=== PATIENT | male | born 1995 | race African-American/Black ===

== ENCOUNTER 2021-03-05 09:14 | Emergency (ER) | payer OTHER, SELFPAY ==
--- NOTE | ~2021-03-05 | XR_ITS ---
EXAMINATION: XR HAND, RIGHT CLINICAL INFORMATION: Pain and swelling 3rd-5th metacarpals. COMPARISON: None TECHNIQUE: PA, lateral, and oblique views of the right hand. FINDINGS: There is no acute fracture, dislocation or bony abnormality involving the right hand of the fingers. MCP, IP and CMC MCP joints are normal. The soft tissues are normal XR/XR hand RT min 3V IMPRESSION: Unremarkable right hand.
[2021-03-05 09:28] VITALS: BP 143/69; PULSE 100; RESP 19; TEMP 36.6; O2SAT 99; BMI 17.3
--- NOTE | 2021-03-05 09:44 | ED_ITS ---
HPI - Extremity Problem General Chief complaint: Extremity Injury, Upper Stated complaint: right hand pain Time Seen by Provider: 03/05/21 09:44 Source: patient Mode of arrival: ambulatory Limitations: no limitations History of Present Illness HPI Narrative: 25 y/o male presenting with right hand pain after he punched a wall last night. He states the wall was brick and he did it because he was angry. He had immediate pain to his 3rd and 4th knuckles, worse with movement and palpation. He has no numbness or tingling. No obvious deformity or significant swelling. He had continued pain this morning so he presents for x- rays to see if it is broken. He is right hand dominant. MD Complaint: extremity pain Pain Consistency: constant Location: right and upper extremity Quality: aching Radiation: none Relieving factors: immobilization and rest Exacerbating factors: range of motion and palpation Associated symptoms: denies other symptoms Related Data Previous Rx's Medication Instructions Recorded ibuprofen 600 mg PO Q8H PRN #20 tab 03/05/21 Allergies Allergy/AdvReac Type Severity Reaction Status Date / Time No Known Allergies Allergy Verified 03/05/21 10:02 Review of Systems Review of Systems: Constitutional: No Fever, No Chills Cardiovascular: No Chest Pain, No SOB Respiratory: No Cough, No Sputum Gastrointestinal: No Nausea, No Vomiting Musculoskeletal: + joint pain, No Myalgias Skin: No Skin Lesions, No rash, +abrasions Neuro: No Weakness, No Numbness Psych: No Anxiety/Panic, No Depression Heme/Lymph: No Bruising PMFSH Past Medical History Attestation statement: The following information was validated with the patient. Social History Social History Advance Directives: Yes Advance Directives Information Provided: No Advance Directives on File: No Physical Exam Vital Signs: Vital Signs: Last Vital Signs Temp 98 F 03/05/21 09:28 Pulse 100 03/05/21 09:28 Resp 19 03/05/21 09:28 BP 143/69 H 03/05/21 09:28 Pulse Ox 99 03/05/21 09:28 Body Mass Index 17.3 Appearance: Alert. Oriented X3. No acute distress. HEENT: normal inspection CVS: Normal heart rate and rhythm. Pulses normal. Respiratory: No respiratory distress. Skin: Skin warm and dry. Normal skin color. Normal skin turgor. No rashes. Extremities: right hand with mild swelling over 3rd and 4th MCP's with scattered superficial abradions to dorsal hand and 4th and 3rd fingers. no deformity. good cap refill and radial pulse. tenderness of 3rd and 4th MCP joints and proximal carpals. pain with hand grasp, he has full ROM of his hand and wrist but with some discomfort. Neuro: Oriented X 3. No motor deficit. No sensory deficit. Course Course Course Narrative: 25 y/o male presenting with traumatic right hand pain s/p punching a wall. XR pending to assess for fracture Reevaluation(s) Reevaluation #1: XR is negative. Placed in SHAHANA wrap for support and compression. Will Rx for NSAID and have him f/u with Ortho if pain persists for re- evaluation. Stable for discharge home. Discharge Plan Discharge Clinical Impression: Contusion of hand Qualifiers: Encounter type: initial encounter Laterality: right Qualified Code(s): S60.221A - Contusion of right hand, initial encounter Patient Disposition: Home, Self-Care Instructions: Contusion in Adults (ED) Additional Instructions: Your hand x-ray showed no fractures. Recommend using the SHAHANA wrap for support, elevating your hand when possible and ice several times per day. Take prescribed Iburpofen as directed. If you have persistent pain in 1 week, follow up with retail product demo specialist for re-evaluation. Prescriptions: New ibuprofen 600 mg tablet 600 mg PO Q8H PRN (Reason: pain) Qty: 20 RF: 0 Referrals: Frederic Baxter MD [Physician] - 1 week (traumatic right hand pain, XR negative)
[2021-03-05] MEDS: Ketorolac Tromethamine 30 MG/ML VIAL IM (10:12)
--- NOTE | 2021-03-05 10:13 | PC.NURSE ---
Imaging obtained, antibiotic ointment, bandaid, and radha wrap applied to hand by Pricilla CARDOZO. PT given IM Toradol for pain. Pt awaiting discharge.
== END 2021-03-05 10:28 | disposition home or self-care (01) ==
PROVIDERS: Emergency Provider Emergency Medicine
DX: S60.221A Contusion of right hand, initial encounter (principal); W22.09XA Striking against other stationary object, initial encounter; Y93.9 Activity, unspecified; Y92.9 Unspecified place or not applicable; Y99.9 Unspecified external cause status
CPT/HCPCS: 73130; 96372; 99284; J1885

== ENCOUNTER 2021-04-13 19:17 | Emergency (ER) | payer OTHER, SELFPAY ==
--- NOTE | ~2021-04-13 | XR_ITS ---
EXAMINATION: XR CHEST CLINICAL INFORMATION: Pneumonia COMPARISON: None TECHNIQUE: Frontal view of the chest was obtained. FINDINGS: No significant abnormality is noted involving the heart, lungs, mediastinum, bony thorax or soft tissues. XR/XR chest 1V IMPRESSION: Unremarkable examination.
[2021-04-13 19:42] VITALS: BP 119/72; PULSE 129; RESP 22; TEMP 38.1; O2SAT 100; BMI 17.3
[2021-04-13 21:03] VITALS: BP 109/76; PULSE 121; RESP 14; TEMP 37.4; O2SAT 100
--- NOTE | 2021-04-13 21:03 | PC.NURSE ---
report taken from benigno payne. client tachycardic, mildly febrile. states chills and cold. states back pain.
[2021-04-13] MEDS: 0.9 % Sodium Chloride 1,000 ML 999 ML IV ×3 (21:10→22:21)
[2021-04-13 21:29] LABS: MANUAL DIFF FLAG NO
[2021-04-13 21:36] LABS: Basophils Percent Auto 0.4 % (0-2); Eosinophils Absolute Auto 0.1 X10*3/uL (0.0-0.4); Eosinophils Percent Auto 0.6 % (0-4); Hematocrit 45.9 % (42-52); Hemoglobin 15.5 g/dl (14.0-18.0); Imm Gran Abs Auto 0.06 X10*3/uL (0.00-0.03); Imm Gran Pct Auto 0.6 % (0.0-0.4); Lymphocytes Absolute Auto 0.3 X10*3/uL (1.2-4.9); Lymphocytes Percent Auto 2.6 % (20-40); Mean Corpuscular HGB Conc 33.8 g/dl (31.0-36.0); Mean Corpuscular Volume 88.8 fL (80-98); Mean Platelet Volume 9.8 fL (9.4-12.4); Monocytes Absolute Auto 1.5 X10*3/uL (0.1-1.2); Monocytes Percent Auto 14.9 % (2-11); Neutrophils Absolute Auto 7.9 X10*3/uL (2.0-8.3); Neutrophils Percent Auto 80.9 % (45-73); Platelet Count 186 X10*3/uL (160-400); Red Blood Count 5.17 X10*6/uL (4.60-5.80); Red Cell Distribution Width 12.7 % (11.0-16.0); White Blood Count 9.7 X10*3/uL (4.8-10.8)
--- NOTE | 2021-04-13 21:36 | PC.NURSE ---
pt lined and labbed. pending second blood cultures. fluid running. client complaining of 10/10 back pain.
[2021-04-13 21:41] LABS: INTERNATIONAL NORM RATIO 1.1 (0.9-1.1); Prothrombin Time 12.2 SEC (9.9-13.0)
[2021-04-13 21:42] LABS: COVID-19 Test Positive (Negative); IDNOW Serial# 9DD0AD1C
[2021-04-13 21:44] LABS: Partial Thromboplastin Time 40.9 SEC (24.1-38.0)
[2021-04-13 22:02] LABS: Alanine Aminotransferase 17 U/L (0-40); Albumin Level 4.9 g/dL (3.5-5.0); Alkaline Phosphatase 79 U/L (39-117); Anion Gap 18 (12-20); Aspartate Amino Transferase 26 U/L (5-37); Bilirubin Direct 0.3 mg/dL (0.0-0.5); Bilirubin Total 0.9 mg/dL (0.0-1.0); Blood Urea Nitrogen 14 mg/dL (9-16); Calcium 10.3 mg/dL (8.4-10.2); Carbon Dioxide 19 mmol/L (22-29); Chloride 102 mmol/L (96-108); Creatinine Clr Calc Pharmacy 71.3; Estimated Glomerular Filt Rate > 60; Glucose Random 94 mg/dL (60-115); Sodium 135 mmol/L (135-145)
[2021-04-13 22:04] LABS: Lactic Acid 2.2 mmol/L (0.5-2.0)
[2021-04-13 22:15] VITALS: BP 121/82; PULSE 122; RESP 14; O2SAT 100
[2021-04-13 22:22] LABS: Erythrocyte Sedimentation Rate 2 MM/HR (0-15)
[2021-04-13 23:26] LABS: Reflex Lactate? Lactic Acid Added
--- NOTE | 2021-04-14 00:07 | ED.GENADULT ---
HPI - General Adult General Chief complaint: Back Pain/Injury Stated complaint: back pain Time Seen by Provider: 04/13/21 20:41 Source: patient Mode of arrival: ambulatory Limitations: no limitations History of Present Illness HPI narrative: Patient presents to ED for lower back pain, fever, and chills. Patient denies any other symptoms. Patient states he was not vaccinated for COVID-19 virus. Patient states no chest pain, shortness of breath, abdominal pain, diarrhea, dysuria, hematuria, blood in stool. Patient denies any coughing, ear pain, sore throat. Related Data Previous Rx's Medication Instructions Recorded ibuprofen 600 mg tablet 600 mg PO Q8H PRN #20 tab 03/05/21 Allergies Allergy/AdvReac Type Severity Reaction Status Date / Time No Known Allergies Allergy Verified 03/05/21 10:02 Review of Systems Review of Systems: Yes all other systems are reviewed and are negative Constitutional: Constitutional: Reports as per HPI and Reports no additional constitutional complaints Eyes: Eyes: Reports as per HPI and Reports no additional eye complaints ENT: Reports system reviewed and no additional complaints, except as documented and Reports as per HPI Cardiovascular: Cardiovascular: Reports as per HPI and Reports no additional cardiovascular complaints Respiratory: Respiratory: Reports as per HPI and Reports no additional respiratory complaints Gastrointestinal: Gastrointestinal: Reports as per HPI and Reports no additional gastrointestinal complaints Genitourinary: Genitourinary: Reports no additional male genitourinary complaints and Reports as per HPI Musculoskeletal: Musculoskeletal: Reports no additional musculoskeletal complaints and Reports as per HPI Integumentary/Breasts: Skin/Breast: Reports system reviewed and no additional complaints, except as docu Neurologic: Reports system reviewed and no additional complaints, except as documented and Reports as per HPI Psychiatric: Psychiatric: Reports no additional psychiatric complaints and Reports as per HPI [facility] Social History Social History Advance Directives: No Advance Directives Information Provided: Yes Physical Exam Vital Signs: Vital Signs: Last Vital Signs Temp 101.6 F H 04/14/21 00:18 Pulse 123 H 04/14/21 00:18 Resp 12 04/14/21 00:18 BP 119/59 L 04/14/21 00:18 Pulse Ox 99 04/14/21 00:18 Body Mass Index 17.3 Const: General: cooperative, healthy appearing, comfortable, no acute distress, well developed, alert, awake and Physically active Orientation/consciousness: oriented to person, oriented to place, oriented to time and patient oriented x3 HENMT: Head: Yes normal to inspection, Yes No palpable skull fracture present, Yes normocephalic and Yes atraumatic Eyes: General: appearance normal, both eyes and all related structures Neck: Neck: Yes normal visual inspection and Yes full ROM Chest: Chest palpation & inspection: normal inspection of the chest and normal palpation of entire chest wall Resp: Effort & Inspection: normal respiratory effort and able to speak in complete sentences Cardio: Jugular venous distension: no JVD Heart sounds: S1 normal heart sound present and S2 normal heart sound present GI: Inspection: Yes normal to inspection and No abdominal wall ecchymosis Palpation (GI): Soft to palpation, not firm, nontender, no guarding and not rigid : General: No CVA tenderness and Yes no CVA tenderness Back/Spine/Pelvis: Back: no CVA tenderness, No CVA tenderness and back tenderness (Mild lumbar spine tenderness) Skin: General skin exam: no rashes or lesions noted and elasticity normal Neuro: General: oriented to person, oriented to place, oriented to time, patient oriented x3, gait normal, tone normal and CN's II-XI intact bilaterally Cranial nerves: Yes CN's II-XII intact bilaterally Extrem: General: Yes normal to inspection and Yes full ROM Psych: Appearance: grossly normal, well kempt and not disheveled Course Course Course Narrative: Patient febrile tachycardic. Patient will be transferred to the main ED from [facility]. Reevaluation(s) Reevaluation #1: Patient labs came back normal. Patient's COVID swab came back positive. ESR CRP negative. Not suspecting any epidural abscess. Patient denies any history of drug abuse. Chest x-ray negative for pneumonia. Waiting for repeat vitals and repeat lactic. Most likely patient will be discharged. Time: 00:11 Reevaluation #2: Patient given Tylenol and Motrin to improve vitals. Patient not hypoxic. Patient's O2 saturation on room air 100% Time: 00:43 Reevaluation #3: Discharge papers prepared. Once fever resolves patient can be discharged. Time: 01:21 Medical Decision Making MDM Narrative Medical decision making narrative: COVID Lab Data Result diagrams: 04/13/21 21:21 04/13/21 21:21 Labs: Lab Results 04/13/21 04/13/2121 Range/Units 21:21 21:21 21:21 WBC 9.7 (4.8-10.8) X10*3/uL RBC 5.17 (4.60-5.80) X10*6/uL Hgb 15.5 (14.0-18.0) g/dl Hct 45.9 (42-52) % MCV 88.8 (80-98) fL MCH 30.0 (27.0-33.0) pg MCHC 33.8 (31.0-36.0) g/dl RDW 12.7 (11.0-16.0) % Plt Count 186 (160-400) X10*3/uL MPV 9.8 (9.4-12.4) fL Immature Gran % (Auto) 0.6 H (0.0-0.4) % Neut % (Auto) 80.9 H (45-73) % Lymph % (Auto) 2.6 L (20-40) % [place] % (Auto) 14.9 H (2-11) % Eos % (Auto) 0.6 (0-4) % Baso % (Auto) 0.4 (0-2) % Lymph # (Auto) 0.3 L (1.2-4.9) X10*3/uL [place] # (Auto) 1.5 H (0.1-1.2) X10*3/uL Eos # (Auto) 0.1 (0.0-0.4) X10*3/uL Baso # (Auto) 0.0 (0.0-0.2) X10*3/uL Abs Immat Gran (auto) 0.06 H (0.00-0.03) X10*3/uL Absolute Neuts (auto) 7.9 (2.0-8.3) X10*3/uL Absolute Nucleated RBC 0.000 (0.0-0.012) X10*3/uL Nucleated RBC % (auto) 0.0 (0.0-0.2) /100WBC ESR (0-15) MM/HR PT 12.2 (9.9-13.0) SEC INR 1.1 (0.9-1.1) APTT 40.9 H (24.1-38.0) SEC Sodium 135 (135-145) mmol/L Potassium 4.0 (3.3-5.1) mmol/L Chloride 102 (96-108) mmol/L Carbon Dioxide 19 L (22-29) mmol/L Anion Gap 18 (12-20) BUN 14 (9-16) mg/dL Creatinine 1.37 (0.5-1.4) mg/dL Estim Creat Clear Calc 71.3 Estimated GFR > 60 Random Glucose 94 (60-115) mg/dL Lactic Acid (0.5-2.0) mmol/L Lactic Acid Fup @ 2Hr (0.5-2.0) mmol/L Calcium 10.3 H (8.4-10.2) mg/dL Total Bilirubin 0.9 (0.0-1.0) mg/dL Direct Bilirubin 0.3 (0.0-0.5) mg/dL AST 26 (5-37) U/L ALT 17 (0-40) U/L Alkaline Phosphatase 79 (39-117) U/L Total Protein 9.0 H (6.5-8.0) g/dL Albumin 4.9 (3.5-5.0) g/dL COVID-19 (JULIO) (Negative) COVID-19 Clin Com 04/13/21 04/13/21 04/13/21 Range/Units 21:21 21:21 21:21 WBC (4.8-10.8) X10*3/uL RBC (4.60-5.80) X10*6/uL Hgb (14.0-18.0) g/dl Hct (42-52) % MCV (80-98) fL MCH (27.0-33.0) pg MCHC (31.0-36.0) g/dl RDW (11.0-16.0) % Plt Count (160-400) X10*3/uL MPV (9.4-12.4) fL Immature Gran % (Auto) (0.0-0.4) % Neut % (Auto) (45-73) % Lymph % (Auto) (20-40) % [place] % (Auto) (2-11) % Eos % (Auto) (0-4) % Baso % (Auto) (0-2) % Lymph # (Auto) (1.2-4.9) X10*3/uL [place] # (Auto) (0.1-1.2) X10*3/uL Eos # (Auto) (0.0-0.4) X10*3/uL Baso # (Auto) (0.0-0.2) X10*3/uL Abs Immat Gran (auto) (0.00-0.03) X10*3/uL Absolute Neuts (auto) (2.0-8.3) X10*3/uL Absolute Nucleated RBC (0.0-0.012) X10*3/uL Nucleated RBC % (auto) (0.0-0.2) /100WBC ESR 2 (0-15) MM/HR PT (9.9-13.0) SEC INR (0.9-1.1) APTT (24.1-38.0) SEC Sodium (135-145) mmol/L Potassium (3.3-5.1) mmol/L Chloride (96-108) mmol/L Carbon Dioxide (22-29) mmol/L Anion Gap (12-20) BUN (9-16) mg/dL Creatinine (0.5-1.4) mg/dL Estim Creat Clear Calc Estimated GFR Random Glucose (60-115) mg/dL Lactic Acid 2.2 H* (0.5-2.0) mmol/L Lactic Acid Fup @ 2Hr (0.5-2.0) mmol/L Calcium (8.4-10.2) mg/dL Total Bilirubin (0.0-1.0) mg/dL Direct Bilirubin (0.0-0.5) mg/dL AST (5-37) U/L ALT (0-40) U/L Alkaline Phosphatase (39-117) U/L Total Protein (6.5-8.0) g/dL Albumin (3.5-5.0) g/dL COVID-19 (JULIO) Positive A (Negative) COVID-19 Clin Com See Note 04/14/21 Range/Units 00:16 WBC (4.8-10.8) X10*3/uL RBC (4.60-5.80) X10*6/uL Hgb (14.0-18.0) g/dl Hct (42-52) % MCV (80-98) fL MCH (27.0-33.0) pg MCHC (31.0-36.0) g/dl RDW (11.0-16.0) % Plt Count (160-400) X10*3/uL MPV (9.4-12.4) fL Immature Gran % (Auto) (0.0-0.4) % Neut % (Auto) (45-73) % Lymph % (Auto) (20-40) % [place] % (Auto) (2-11) % Eos % (Auto) (0-4) % Baso % (Auto) (0-2) % Lymph # (Auto) (1.2-4.9) X10*3/uL [place] # (Auto) (0.1-1.2) X10*3/uL Eos # (Auto) (0.0-0.4) X10*3/uL Baso # (Auto) (0.0-0.2) X10*3/uL Abs Immat Gran (auto) (0.00-0.03) X10*3/uL Absolute Neuts (auto) (2.0-8.3) X10*3/uL Absolute Nucleated RBC (0.0-0.012) X10*3/uL Nucleated RBC % (auto) (0.0-0.2) /100WBC ESR (0-15) MM/HR PT (9.9-13.0) SEC INR (0.9-1.1) APTT (24.1-38.0) SEC Sodium (135-145) mmol/L Potassium (3.3-5.1) mmol/L Chloride (96-108) mmol/L Carbon Dioxide (22-29) mmol/L Anion Gap (12-20) BUN (9-16) mg/dL Creatinine (0.5-1.4) mg/dL Estim Creat Clear Calc Estimated GFR Random Glucose (60-115) mg/dL Lactic Acid (0.5-2.0) mmol/L Lactic Acid Fup @ 2Hr 1.0 (0.5-2.0) mmol/L Calcium (8.4-10.2) mg/dL Total Bilirubin (0.0-1.0) mg/dL Direct Bilirubin (0.0-0.5) mg/dL AST (5-37) U/L ALT (0-40) U/L Alkaline Phosphatase (39-117) U/L Total Protein (6.5-8.0) g/dL Albumin (3.5-5.0) g/dL COVID-19 (JULIO) (Negative) COVID-19 Clin Com Discharge Plan Discharge Clinical Impression: COVID Patient Disposition: Home, Self-Care Instructions: COVID-19 (Coronavirus Disease 2019) (ED) Additional Instructions: You came back positive for COVID. Practice self-isolation for the next 14 days. Return to the ED immediately for any chest pain, shortness of breath, weakness, dizziness, swelling of lower extremities, coughing up blood, or any other concerning symptoms. Prescriptions: No Action ibuprofen 600 mg tablet 600 mg PO Q8H PRN (Reason: pain) Qty: 20 RF: 0 Stand Alone Forms: Work/School Release Print Language: Cameroonian
[2021-04-14 00:18] VITALS: BP 119/59; PULSE 123; RESP 12; TEMP 38.7; O2SAT 99
[2021-04-14] MEDS: Ketorolac Tromethamine 15 MG/ML VIAL 30 MG IVPUSH (00:39)
[2021-04-14] MEDS: Acetaminophen 325 MG TABLET 650 MG PO (00:39)
[2021-04-14 03:06] VITALS: BP 112/78; PULSE 101; RESP 18; TEMP 36.9; O2SAT 100
== END 2021-04-14 03:08 | disposition home or self-care (01) ==
PROVIDERS: Physician Assistant; Emergency Provider Internal Medicine
DX: U07.1 COVID-19 (principal); M54.5 Low back pain; R50.9 Fever, unspecified; Z79.899 Other long term (current) drug therapy
CPT/HCPCS: 36415; 71045; 80048; 80076; 83605; 85025; 85610; 85652; 85730; 87040; 87635; 96361; 96365; 96375; 99284; J1885

== ENCOUNTER 2021-07-04 16:18 | Emergency (ER) | payer OTHER, SELFPAY ==
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
[2021-07-04 16:23] VITALS: BP 120/78; PULSE 95; RESP 18; TEMP 36.6; O2SAT 97
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
== END 2021-07-04 18:43 | disposition home or self-care (01) ==
PROVIDERS: Emergency Provider Internal Medicine
DX: S13.4XXA Sprain of ligaments of cervical spine, initial encounter (principal); S16.1XXA Strain of muscle, fascia and tendon at neck level, initial encounter; G44.309 Post-traumatic headache, unspecified, not intractable; M54.2 Cervicalgia; Y29.XXXA Contact with blunt object, undetermined intent, initial encounter; Y93.9 Activity, unspecified; Y92.410 Unspecified street and highway as the place of occurrence of the external cause; Y99.9 Unspecified external cause status; Z79.899 Other long term (current) drug therapy
CPT/HCPCS: 70450; 72125; 99283; 99284

== ENCOUNTER 2021-09-14 11:04 | Emergency (ER) | payer OTHER, SELFPAY ==
--- NOTE | ~2021-09-14 | XR_ITS ---
EXAMINATION: XR KNEE, RIGHT CLINICAL INFORMATION: Pain COMPARISON: None TECHNIQUE: Four views of the right knee. FINDINGS: Bones and soft tissues are normal. No fracture or joint effusion. Alignment is anatomic. Joint spaces are well maintained. No abnormal soft tissue calcification. XR/XR knee RT 4V IMPRESSION: Normal right knee.
[2021-09-14 12:30] VITALS: BP 130/67; PULSE 77; RESP 18; TEMP 36.7; O2SAT 99; BMI 17.9
--- NOTE | 2021-09-14 14:38 | ED.EPISTAXIS ---
History of Present Illness General Chief Complaint: Epistaxis Stated Complaint: nose bleed,loose knee Time Seen by Provider: 09/14/21 14:23 Source: patient Mode of arrival: ambulatory Limitations: no limitations History of Present Illness HPI Narrative: 25-year-old male presenting to the ED with complaints of resolved epistaxis to his right Nare that occurred this morning. He reports associated nasal congestion. Denies recent travel or sick contacts. Requesting to be tested for COVID. Also reports atraumatic right knee pain where it feels like it is wobbly when he is walking. He reports that he stands/walks a lot at work and he thinks that he may need to slow it down at work. He denies any other symptoms complaints or concerns at this time. Location: Yes right nares Onset/current episode: Yes minute(s) Duration: Yes now resolved Pertinent past history: Yes history of previous nose bleed Context: Yes history of previous nose bleed Associated symptoms: Yes nasal congestion Treatment prior to arrival: Yes nose pinching, Yes head leaning forward and Yes stuff nose with tissue Related Data Previous Rx's Medication Instructions Recorded ibuprofen 600 mg tablet 600 mg PO Q8H PRN #20 tab 03/05/21 naproxen 500 mg tablet 500 mg PO BID PRN #20 tab 07/04/21 oxymetazoline 0.05 % nasal spray 2 spray INTRANASAL Q12H PRN 3 Days 09/14/21 (Afrin (oxymetazoline)) #30 ml Allergies Allergy/AdvReac Type Severity Reaction Status Date / Time No Known Allergies Allergy Verified 09/14/21 12:30 Review of Systems Review of Systems: Constitutional : No Fever, No Chills ENT/Mouth : No Ear Pain, No Nasal Congestion, + resolved nose bleed Eyes: No Eye Pain, No Swelling, No Redness Cardiovascular : No Chest Pain, No SOB Respiratory : No Cough, No Sputum Gastrointestinal : No Nausea, No Vomiting, No Diarrhea Genitourinary : No Dysuria, No Hematuria Musculoskeletal : + right knee joint pain, No Myalgias Skin : No Skin Lesions, No rash Neuro : No Weakness, No Numbness, No headache Psych : No Anxiety/Panic, No Depression Heme/Lymph: No Bleeding,No Lymphadenopathy Endocrine : No Polyuria, No Polydipsia Yes all other systems are reviewed and are negative [facility] Past Medical History Attestation statement: The following information was validated with the patient. Medical History No known health problems Social History Social History Advance Directives: No Advance Directives Information Provided: No Physical Exam Vital Signs: Vital Signs: Last Vital Signs Temp 98.0 F 09/14/21 12:30 Pulse 77 09/14/21 12:30 Resp 18 09/14/21 12:30 BP 130/67 09/14/21 12:30 Pulse Ox 99 09/14/21 12:30 BMI result Body Mass Index 17.9 vital signs have been reviewed as normal and appeared to be correct. Blood pressure normal. Heart rate normal. Respiration rate normal. Temperature normal. Oxygen saturation normal. Appearance: Alert. Oriented X3. No acute distress. Head: Normal external exam. Normocephalic. Atraumatic. Eyes: PERRLA. EOMI. Conjunctiva and sclera normal. Eyelids normal. ENT: EAC normal. TM's Normal. Nares are within normal limits. Noted to have clear thin nasal congestion bilaterally. No septal hematoma is noted. No blood in the posterior pharynx or epistaxis noted at this time. Pharynx normal. Uvula midline. Moist mucous membranes. No trismus noted. No drooling noted. No muffled voice noted. Neck: Normal inspection. Neck supple. FROM. No adenopathy. Thyroid Normal. No meningeal signs. No neck mass noted. CVS: Normal heart rate and rhythm. Heart sound normal. Pulses normal throughout. No murmurs/rales/gallops. Respiratory: No respiratory distress. Painless inspiration. Breath sounds normal. No wheezes/rales/rhonchi noted. Chest nontender. No accessory muscle usage noted or decreased air movement noted. Abdomen: Soft and nontender. Bowel sounds normal in all 4 quadrants. No distention noted. No organomegaly noted. No visible injury noted. Back: No CVA tenderness. Full range of motion noted. No rashes/lesion/induration/fluctuance or signs of infection noted. Skin: Skin warm and dry. Normal skin color. Normal skin turgor. No rashes/lesions/lacerations noted. Extremities: Patient's reports pain to the right knee although on my exam he is nontender. No obvious ligamentous or tendon injury is noted. No obvious signs of edema or signs of infection. No lower extremity edema or calf tenderness is noted. Otherwise all other Extremities exhibit normal range of motion and nontender. Neuro: Oriented X 3. No motor deficit. No sensory deficit. Reflexes normal. Normal steady gait. No focal neuro deficits noted. Vascular: + radial pulses/+ 2 distal pedal pulses/+2 dorsalis pedis b/l. Normal cap refill. No cyanosis noted to upper extremity nails and lower extremity toes nails. Course Course Course Narrative: 25-year-old male presenting to the ED with complaints of resolved epistaxis to his right Nare that occurred this morning. He reports associated nasal congestion. Denies recent travel or sick contacts. Requesting to be tested for COVID. Also reports atraumatic right knee pain where it feels like it is wobbly when he is walking. He reports that he stands/walks a lot at work and he thinks that he may need to slow it down at work. He denies any other symptoms complaints or concerns at this time. Therefore at this time will test the patient for COVID in [place] home only call him with positive results. Will also placed in an Curt wrap as his right knee x-rays within normal limits. Along with instructions return if any new or worsening symptoms and to follow up with primary care provider to self isolate per CDC guidelines. Patient understands agrees this plan. MDM - Epistaxis Medical Records Attestation: I reviewed the patient's medical records. Lab Data Attestation: I reviewed the patient's lab results. Labs: Lab Results 09/14/21 Range/Units 14:43 COVID-19 (JULIO) Negative (Negative) COVID-19 Clin Com See Note Imaging Data Right knee x-ray: Attestation: I personally reviewed and interpreted this imaging study as follows: Radiologist's impression: FINDINGS: Bones and soft tissues are normal. No fracture or joint effusion. Alignment is anatomic. Joint spaces are well maintained. No abnormal soft tissue calcification.? XR/XR knee RT 4V IMPRESSION: Normal right knee. Procedures Orthopedic Splinting/Casting Injury #1: Side: right Lower Extremity Injury Location: knee Lower Extremity Immobilizer: Curt wrap Discharge Plan Discharge Clinical Impression: Epistaxis, Mild nasal congestion, Strain of left knee Patient Disposition: Home, Self-Care Instructions: Nosebleed (ED), Knee Pain (ED), How to Use Nasal [place] (ED) Additional Instructions: Based on your symptoms and history we have sent a COVID-19. Although your RESULT IS PENDING at this time. RESULTS should return within 2-4 hours. At this time you will be contacted with ONLY POSITIVE results. -Please wait until we contact you for your results. At this time you will be okay for discharge. Please plan for self quarantine for up to 14 days. Do not expose yourself to others. You may not go to work. If testing does come back negative you may return to activities as long as you are no longer having any symptoms for at least 3 days. Please continue to follow cold instructions and wash your hands frequently. You may take Tylenol as directed on the bottle for pain or fever. Patient seen in the emergency department on -------- and should be excused from work until negative test results AND until 72 hours without any symptoms AND at least 10 days have passed since symptoms first appeared or since last exposure to COVID-19 positive patient CDC Guidelines for home isolation: - Stay away from others - WEAR A MASK if you are sick AND STAY HOME - Cover your mouth and nose with a tissue when you cough or sneeze. Dispose of tissues in a lined trash can and wash your hands immediately with soap and water for at least 20 seconds. If soap and water are not available, clean hands with alcohol-based hand national sales that contains at least 60% alcohol. - Clean your hands often with soap and water for at least 20 seconds - Avoid touching your eyes, nose and mouth with unwashed hands - Do not share dishes, drinking glasses, cups, eating utensils, towels, or bedding with other people in your home. After using these items, wash them thoroughly with soap and water or put in the writer producer. - Clean high-touch surfaces in your isolation area ( sick room and bathroom) every day; let a caregiver clean and disinfect high-touch surfaces in other areas of the home. Clean the area or item with soap and water or another detergent if it is dirty. Then, use a household disinfectant. - Limit contact with pets and animals: If you must care for a pet, wash your hands before and after interacting with them). Prescriptions: New oxymetazoline [Afrin (oxymetazoline)] 0.05 % spray,non-aerosol 2 spray intranasal Q12H PRN (Reason: nasal congestion/epistaxis) 3 Days Qty: 30 RF: 0 No Action ibuprofen 600 mg tablet 600 mg PO Q8H PRN (Reason: pain) Qty: 20 RF: 0 naproxen 500 mg tablet 500 mg PO BID PRN (Reason: pain) Qty: 20 RF: 0 Referrals: Physician,None [Primary Care Provider] - 2 days (Your primary care provider) Stand Alone Forms: Work/School Release Interventions: ED Discharge Assessment Last Done: 09/14/21 14:51 Discharge Date/Time: 09/14/21 14:52 Print Language: Portuguese
[2021-09-14 15:06] LABS: COVID-19 Test Negative (Negative); IDNOW Serial# 9DD0AD1C
== END 2021-09-14 14:52 | disposition home or self-care (01) ==
PROVIDERS: Physician Assistant Medical; Emergency Provider Emergency Medicine
DX: R04.0 Epistaxis (principal); R09.81 Nasal congestion; S86.911A Strain of unspecified muscle(s) and tendon(s) at lower leg level, right leg, initial encounter; X58.XXXA Exposure to other specified factors, initial encounter; M25.561 Pain in right knee; Z20.822 Contact with and (suspected) exposure to COVID-19; Y93.9 Activity, unspecified; Y92.9 Unspecified place or not applicable; Y99.9 Unspecified external cause status
CPT/HCPCS: 73564; 87635; 99283